=== PATIENT | male | born 1965 | race Two or more races ===

== ENCOUNTER 2024-01-18 06:12 | Inpatient (IN) | payer OTHER ==
[~2024-01-18] VITALS: Ht 170.2 cm; Wt 91.1 kg
[2024-01-18] VITALS (19 sets, daily range): BP systolic 96–111; BP diastolic 55–71; PULSE 61–83; RESP 18–20; TEMP 96.8–98; O2SAT 92–99
[~2024-01-18 06:12] MED LIST: LOSA-534 PO; METF-372 PO; POTA-36 PO; ROSU20TA14 PO; SEMA2INJ3 SC
[2024-01-18] MEDS ORDERED: BUPIVACAINE 0.5% P/F INJ 10 ML VIAL ONE (06:58)
[2024-01-18] MEDS ORDERED: fentaNYL CITRATE 100 MCG/2 ML VL ONE (06:59)
[2024-01-18] MEDS ORDERED: MIDAZOLAM HCL 2MG/2ML 2ml VIAL (1mg/ml) ONE (07:00)
[2024-01-18] MEDS ORDERED: ePHEDrine SULFATE 50 MG/ML AMP ONE (07:00)
[2024-01-18] MEDS ORDERED: KETOROLAC TROMETH 30 MG/ML 1ML VIAL ONE (07:00)
[2024-01-18] MEDS ORDERED: PHENYLEPHRINE HCL 10 MG/ML VL ONE (07:00)
[2024-01-18] MEDS ORDERED: KETAMINE 50mg/ML 1ml syringe ONE (07:00)
[2024-01-18] MEDS ORDERED: GLYCOPYRROLATE 0.2 MG/ML 1ML VIAL ONE (07:00)
[2024-01-18] MEDS ORDERED: DexAMETHasone SOD PHOS 10MG/1ML VIAL INJ ONE (07:00)
[2024-01-18] MEDS ORDERED: PROPOFOL 10 MG/ML 20 ML IV ONE (07:00)
[2024-01-18] MEDS: TRANEXAMIC ACID 20 ML ONE (07:36)
[2024-01-18] MEDS: ceFAZolin 2 GM/D5W100ml 100 ML IV ONE (07:40)
[2024-01-18] MEDS: CEFEPIME 1GM/ 50ML 50 ML IV ONE (07:45)
[2024-01-18] MEDS: MORPHINE SULF PF 5 MG/10 ML VIAL ONE (08:18)
[2024-01-18] MEDS: BUPIVACAINE 0.25% INJ 50ML VIAL ONE (08:18)
[2024-01-18] MEDS: KETOROLAC TROMETH 30 MG/ML 1ML VIAL ONE (08:18)
[2024-01-18] MEDS: VANCOMYCIN HCL 1000 MG VL ONE (08:18)
[2024-01-18] MEDS ORDERED: KETAMINE 50mg/ML 10ml Vial 0 ML ONE (08:25)
--- NOTE | 2024-01-18 09:41 | DVH ---
CLINICAL INDICATION: SURGERY TECHNIQUE: 1 radiographic views of the pelvis were obtained. Comparison: None FINDINGS/IMPRESSION: Postsurgical changes from right hip arthroplasty. .
--- NOTE | 2024-01-18 09:49 | DVHOP2 ---
Operative Report - 2 Report Details Date: 01/18/24 Preop Diagnosis: Right hip degenerative arthritis Postop Diagnosis: Same Surgeon: Shwetha Begum MD Relations Manager: Brigitte TEJADA Anesthesiologist: Peterson Anesthesia: Regional Drains: Salvador closed wound suction Implant: DJO origin stem size 14, 0 neck length head 36 ceramic, 52 acetabular shell with flat polyethylene liner Consent: The patient was informed of the risks and benefits of the procedure. These include but are not limited to complications of anesthesia, postoperative infection, incomplete relief of symptoms, recurrence of symptoms, damage to blood vessels, nerves and tendons, deep venous thrombosis, pulmonary embolism and possible need for repeat surgery in the future. Complications: None Estimated Blood Loss: 400 cc Fluids: See anesthesia record Findings: Denuded cartilage with eburnated bone, osteophytes Indications for Surgery: Right hip degenerative arthritis with severe pain and functional impairment despite adequate nonoperative management Name of Procedure Performed Right total hip arthroplasty Procedure Details Procedure Details: The patient was brought to the operating room and given spinal anesthetic with adequate analgesia obtained. The patient was positioned lateral decubitus with the operative side up, stabilized with hip positioners. Axillary roll applied and lower extremities well-padded. Preop patient received IV Ancef, cefepime and IV tranexamic acid. Surgical timeout was performed verifying patient, laterality and procedure. The hip and lower extremity were prepped and draped in sterile fashion. Incision was made over the greater trochanter. Subcutaneous dissection and hemostasis were performed with Bovie and aqua mantis. I identified the fascia which was incised with Bovie and Charnley retractor inserted. I identified the gluteus medius that was split at the junction of its anterior and middle thirds with Bovie then incised off the anterior greater trochanter. I incised the anterior gluteus minimus which was elevated off the capsule. I elevated the reflected head of the rectus. I then performed anterior capsulectomy with Bovie. I extended capsular incision posterior medially and superior laterally. The head was dislocated. Femoral neck cut was made with saw and head removed. Head diameter was calipered on the back table. I adjusted retractors to expose the acetabulum. I circumferentially removed labral tissue with Bovie. I removed foveal tissue with Bovie, curette and rongeur. I then began reaming sequentially paying attention to inclination and version as I went. I trialed which was stable so acetabular implant was brought into the field and tapped into the acetabulum with good fixation achieved. I then brought up the flat liner which was spun to make sure there was no soft tissue entrapment then tapped in and stability verified. I then brought my attention to the proximal femur. The leg was placed in the sterile bag anteriorly. I cleaned up soft tissue at the greater trochanter shoulder with Bovie. I then used a rongeur to clip the lateral neck. I then used a box osteotome, canal finder and lateralizing rasp. I sequentially broached to size 14. I revised femoral neck cut with calcar planer. I trialed with a [0] neck length and [36] head which was stable. Intraoperative AP pelvis x-ray was obtained to verify length, offset and implant size. The hip was dislocated. Neck and head trial removed. broach was removed. I tapped in the femoral implant with good fixation achieved. I cleaned and dried the Juarez taper and tapped on the ceramic head. The hip was again reduced and tested for stability which was good. I irrigated with xperience. I placed a 2 grams of vancomycin in the deep and superficial wound. I repaired the minimus and medius to the anterior greater trochanter with #[5] FiberWire in running fashion . I oversewed the repair with 0 Vicryl. I repaired the fascia with #1 Ethibond interrupted [id number]. Deep subcutaneous tissue was closed with 0 Vicryl. Superficial subcutaneous tissue was closed with 2-0 Vicryl. The skin was closed with aditya. I then applied the Salvador closed wound suction. Patient tolerated the procedure well and was brought to the recovery room in stable condition. Condition Stable Disposition Still a Patient SHWETHA BEGUM MD Jan 18, 2024 09:49
[2024-01-18] MEDS: ACCU-CHEK COMFORT CURVE STRIP VI ONE (10:00)
[2024-01-18] MEDS ORDERED: KETOROLAC TROMETH 30 MG/ML 1ML VIAL IV PRN (10:00)
[2024-01-18] MEDS ORDERED: diphenhdrAMINE HCL 50 MG/1 ML VL IV PRN (10:00)
[2024-01-18] MEDS ORDERED: ONDANSETRON HCL 4 MG/2 ML VIAL IV ONE (10:00)
[2024-01-18] MEDS ORDERED: DexAMETHasone SOD PHOS 10MG/1ML VIAL INJ IV PRN (10:00)
[2024-01-18] MEDS ORDERED: NALOXONE HCL 0.4 MG/ML VIAL IV PRN (10:00)
[2024-01-18] MEDS ORDERED: ONDANSETRON HCL 4 MG/2 ML VIAL IV PRN ×2 (10:00)
[2024-01-18] MEDS ORDERED: METFORMIN HYDROCHLORIDE 1000 MG PO SCH (10:00)
--- NOTE | 2024-01-18 11:29 | DVH ---
CLINICAL INDICATION: postop TECHNIQUE: 1 radiographic views of the pelvis were obtained. Comparison: XY PELVIS AP on DOS: 01/18/24 FINDINGS/IMPRESSION: Status post right hip arthroplasty.
[2024-01-18] MEDS ORDERED: oxyCODONE HCL 5MG TAB PO PRN ×2 (11:30)
[2024-01-18] MEDS: SODIUM CHLORIDE 0.9% 1,000 ML IV SCH (11:30)
[2024-01-18] MEDS: PREGABALIN 25 MG CAP PO SCH (13:04)
[2024-01-18] MEDS: ACETAMINOPHEN 325 MG TAB PO SCH (13:04)
[2024-01-18] MEDS: ceFAZolin 2 GM/D5W50ml 50 ML IV SCH (15:37)
[2024-01-18] MEDS: metFORMIN HYDROCHLORIDE 500 MG TAB PO SCH (19:27)
[2024-01-19] VITALS (18 sets, daily range): BP systolic 96–114; BP diastolic 54–71; PULSE 56–78; RESP 16–20; TEMP 96.7–98.3; O2SAT 94–100
[2024-01-19 06:24] LABS: Basophils # (auto) 0 10 ^3/uL (0-0.2); Basophils % (auto) 0.1 % (0.0-2.0); Eosinophils # (auto) 0 10 ^3/uL (0-0.8); Hematocrit 30.6 % (41.0-53.0); Hemoglobin 10.8 g/dL (13.5-17.5); Lymphocytes % (auto) 9.4 % (10.0-50.0); Mean Corpuscular Hemoglobin 29.4 pg (28.0-32.0); Mean Corpuscular Hgb Conc. 35.1 g/dL (32.0-36.0); Mean Corpuscular Volume 83.7 fL (80.0-100.0); Monocytes # (auto) 0.8 10 ^3/uL (0-1.3); Monocytes % (auto) 6.9 % (0.0-12.0); Neutrophils # (auto) 9.3 10 ^3/uL (1.6-8.6); Neutrophils % (auto) 83.6 % (37.0-80.0); Platelet Count (auto) 201 10^3/uL (140-450); Red Blood Cells 3.66 10^6/uL (4.5-5.90); Red Cell Distribution Width 15.2 % (11.8-14.3); White Blood Cell 11.1 10^3/uL (4.4-10.8)
[2024-01-19 06:31] LABS: Calcium 8.9 mg/dL (8.7-10.4); Chloride 107 mmol/L (98-107); Potassium 4.4 mmol/L (3.5-5.1); Sodium 138 mmol/L (136-145)
[2024-01-19 06:32] LABS: Anion Gap 6 (5-15); Carbon Dioxide 25 mmol/L (20-31)
[2024-01-19 06:37] LABS: BUN/Creatinine Ratio 22.1 (10.0-20.0); Blood Urea Nitrogen 17 mg/dL (9-23); Glucose 175 mg/dL (74-106)
[2024-01-19] MEDS: LOSARTAN POTASSIUM 50 MG TAB PO SCH (07:00)
[2024-01-19] MEDS: APIXABAN 2.5 MG TAB PO SCH (08:51)
--- NOTE | 2024-01-19 17:20 | DVHDS2 ---
Discharge Summary Date of Admission Jan 18, 2024 at 09:58 Date of Discharge: Jan 19, 2024 Labs/Diagnostic Data: Laboratory Results Test 01/19/24 05:17 01/19/24 04:00 01/18/24 09:53 Sodium Level 138 mmol/L (136-145) Potassium Level 4.4 mmol/L (3.5-5.1) Chloride Level 107 mmol/L (98-107) Carbon Dioxide Level 25 mmol/L (20-31) Anion Gap 6 (5-15) Blood Urea Nitrogen 17 mg/dL (9-23) Creatinine 0.77 mg/dL (0.700-1.30) Glomerular Filtration Rate Calc 105 mL/min (>90) BUN/Creatinine Ratio 22.1 (10.0-20.0) Serum Glucose 175 mg/dL (74-106) Calcium Level 8.9 mg/dL (8.7-10.4) White Blood Count 11.1 10^3/uL (4.4-10.8) Red Blood Count 3.66 10^6/uL (4.5-5.90) Hemoglobin 10.8 g/dL (13.5-17.5) Hematocrit 30.6 % (41.0-53.0) Mean Corpuscular Volume 83.7 fL (80.0-100.0) Mean Corpuscular Hemoglobin 29.4 pg (28.0-32.0) Mean Corpuscular Hemoglobin Concent 35.1 g/dL (32.0-36.0) Red Cell Distribution Width 15.2 % (11.8-14.3) Platelet Count 201 10^3/uL (140-450) Mean Platelet Volume 7.8 fL (6.9-10.8) Neutrophils (%) (Auto) 83.6 % (37.0-80.0) Lymphocytes (%) (Auto) 9.4 % (10.0-50.0) Monocytes (%) (Auto) 6.9 % (0.0-12.0) Eosinophils (%) (Auto) 0.0 % (0.0-7.0) Basophils (%) (Auto) 0.1 % (0.0-2.0) Neutrophils # (Auto) 9.3 10 ^3/uL (1.6-8.6) Lymphocytes # (Auto) 1.0 10 ^3/uL (0.4-5.4) Monocytes # (Auto) 0.8 10 ^3/uL (0-1.3) Eosinophils # (Auto) 0 10 ^3/uL (0-0.8) Basophils # (Auto) 0 10 ^3/uL (0-0.2) Nucleated Red Blood Cells 0.0 % POC Glucose 142 mg/dl (70-106) Other Laboratory Tests 01/19/24 05:17 01/19/24 04:00 Brief Hx & Hospital Course: Patient was brought to the hospital yesterday to undergo a right total hip arthroplasty. He tolerated the procedure well without complications and was kept overnight for postoperative observation. He has remained medically stable throughout his stay denied any overnight events and reports pain is being well controlled with the help pain medication. He reports that he was able to get up and walk with the help of physical therapy and his walker and was able to get around the nurses station and back to his bed with only mild pain to his hip. He is otherwise feeling well denying any other complaints or concerns during my evaluation and would like to go home. Condition at Discharge: Stable Final Diagnosis/Problems List Same Discharge Disposition: Home Discharge Instruct/Medications Diet: Regular Activity: See Comment Activity comment: Patient to remain weight-bearing as tolerated with the assistance of a walker Follow Up/Referral: Patient to follow up with our office in 10-14 days for his 1st postoperative evaluation. Medications: Rx sent via our outpatient EMR system Discharge Statement: "Patient was advised to return to the ER or call 911 if any headaches, dizziness, shortness of breath, chest pain, abdominal pain, bleeding, fevers, or worsening of medical condition. Patient was counseled about treatment plan, medications, possible side effects, patientverbalized understanding. All questions were answered to the best of my ability. This discharge took greater then 30 minutes in planning, reviewing documentation, counseling the patient, and discussing with other team members." ASSESSMENT ASSESSMENT Assessment Same ANGELIA MCCLOUD Jan 19, 2024 17:20
--- NOTE | 2024-01-19 17:22 | DVHPN2 ---
Progress Note - Dictate Date Seen: Jan 19, 2024 Medical Necessity Reason Pt with a Central, PICC or Fol: No Subjective Patient was lying comfortably in bed during my evaluation reports some postoperative hip pain that is being well managed with the help of pain medication. Patient reports that he was able to get up and walk with the help of physical therapy and his walker and was able to get to the nurse's station and back to his bed with only mild pain to his hip. Patient is otherwise feeling well denying any other complaints or concerns during my evaluation and would like to go home. vital signs Vital Sign Date Time Temp Pulse Resp B/P (MAP) Pulse Ox O2 Delivery O2 Flow Rate FiO2 01/19/24 16:51 98.3 75 18 111/64 (80) 100 98.3 01/19/24 08:00 Room Air* 0 21 Total Intake and Output 01/18/24 01/18/24 01/19/24 15:00 23:00 07:00 Intake Total 170 ml 550 ml 300 ml Output Total 400 ml 750 ml Balance 170 ml 150 ml -450 ml medications Current Medications Medications Dose Ordered Sig/Mike Route Start Time Stop Time Status Last Admin Dose Admin Diphenhydramine HCl 25 mg Q4HP PRN IV 01/18/24 10:00 Ondansetron HCl 4 mg Q4HP PRN IV 01/18/24 10:00 Ketorolac Tromethamine 30 mg Q6HP PRN IV 01/18/24 10:00 01/23/24 09:59 Pregabalin 50 mg BID PO 01/18/24 10:00 01/19/24 08:51 50 MG Apixaban 2.5 mg BID PO 01/19/24 10:00 02/23/24 09:59 01/19/24 08:51 2.5 MG Sodium Chloride 1,000 ml @ 125 mls/hr Q8H IV 01/18/24 11:30 01/19/24 15:58 125 MLS/HR Acetaminophen 650 mg Q6HP PO 01/18/24 12:00 01/19/24 11:24 650 MG Ondansetron HCl 4 mg Q4HP PRN IV 01/18/24 10:00 Oxycodone HCl 5 mg Q4HP PRN PO 01/18/24 11:30 Oxycodone HCl 10 mg Q4HP PRN PO 01/18/24 11:30 Losartan Potassium 50 mg QAM PO 01/19/24 07:00 Patient Own Medication 1,000 mg BID PO 01/18/24 10:00 UNV Metformin HCl 1,000 mg BIDWM PO 01/18/24 18:00 01/19/24 08:51 1,000 MG objective A&O x4 in no acute distress Hip range of motion grossly intact with pain on movement Salvador dressing clean, dry, intact, and maintaining suction No distal edema or calf tenderness to palpation Neurovascularly intact with cap refill less than 2 seconds laboratory and microbiology Laboratory Tests 01/19/24 05:17 01/19/24 04:00 Test 01/19/24 05:17 Range/Units Serum Glucose 175 H 74-106 mg/dL Assessment/Plan Patient to be discharged home and advised to remain weight-bearing as tolerated with the assistance of a walker. I also instructed the patient to follow up with our office in 10-14 days for his 1st postoperative evaluation and to maintain his dressings clean, dry, intact, and maintaining suction and to call our office if he has any questions or concerns. Rx sent via our outpatient EMR system. He understood and agreed. Plan discussed with: Patient ANGELIA MCCLOUD Jan 19, 2024 17:22
[2024-01-20 01:00] VITALS: BP 111/73; PULSE 76; RESP 19; TEMP 98.8; O2SAT 97
[2024-01-20 05:00] VITALS: BP 113/59; PULSE 69; RESP 17; TEMP 98.4; O2SAT 96
[2024-01-20 08:00] VITALS: PULSE 70; RESP 16
[2024-01-20 08:33] VITALS: BP 124/75; PULSE 72; RESP 19; TEMP 98.1; O2SAT 99
[2024-01-20 12:43] VITALS: BP 114/72; PULSE 75; RESP 19; TEMP 98.5; O2SAT 100
--- NOTE | 2024-01-20 15:12 | DVHPN2 ---
Progress Note - Dictate Date Seen: Jan 20, 2024 Medical Necessity Reason Pt with a Central, PICC or Fol: No Subjective Patient was lying comfortably in bed during my evaluation and reports some continued postoperative hip pain that is being well managed with the help of pain medication. Patient reports that he was able to get up and walk with the help of physical therapy and his walker and was able to get to the nurse's station and back to his bed with only mild pain to his hip. Patient is otherwise feeling well denying any other complaints or concerns during my evaluation and would like to go home and is waiting for a walker. vital signs Vital Sign Date Time Temp Pulse Resp B/P (MAP) Pulse Ox O2 Delivery O2 Flow Rate FiO2 01/20/24 12:43 98.5 75 19 114/72 (86) 100 98.5 01/20/24 08:00 Room Air* 0 21 Total Intake and Output 01/19/24 01/19/24 01/20/24 15:00 23:00 07:00 Intake Total 2040 ml 910 ml Output Total 4710 ml Balance 2040 ml -3800 ml medications Current Medications Medications Dose Ordered Sig/Mike Route Start Time Stop Time Status Last Admin Dose Admin Diphenhydramine HCl 25 mg Q4HP PRN IV 01/18/24 10:00 Ondansetron HCl 4 mg Q4HP PRN IV 01/18/24 10:00 Ketorolac Tromethamine 30 mg Q6HP PRN IV 01/18/24 10:00 01/23/24 09:59 Pregabalin 50 mg BID PO 01/18/24 10:00 01/20/24 08:46 50 MG Apixaban 2.5 mg BID PO 01/19/24 10:00 02/23/24 09:59 01/20/24 08:46 2.5 MG Sodium Chloride 1,000 ml @ 125 mls/hr Q8H IV 01/18/24 11:30 01/20/24 08:50 125 MLS/HR Acetaminophen 650 mg Q6HP PO 01/18/24 12:00 01/20/24 06:02 650 MG Ondansetron HCl 4 mg Q4HP PRN IV 01/18/24 10:00 Oxycodone HCl 5 mg Q4HP PRN PO 01/18/24 11:30 Oxycodone HCl 10 mg Q4HP PRN PO 01/18/24 11:30 Losartan Potassium 50 mg QAM PO 01/19/24 07:00 01/20/24 06:03 50 MG Patient Own Medication 1,000 mg BID PO 01/18/24 10:00 UNV Metformin HCl 1,000 mg BIDWM PO 01/18/24 18:00 01/20/24 08:47 1,000 MG objective A&O x4 in no acute distress Hip range of motion grossly intact with pain on movement Salvador dressing clean, dry, intact, and maintaining suction No distal edema or calf tenderness to palpation Neurovascularly intact with cap refill less than 2 seconds laboratory and microbiology Laboratory Tests 01/19/24 05:17 01/19/24 04:00 Test 01/19/24 05:17 Range/Units Serum Glucose 175 H 74-106 mg/dL Assessment/Plan Patient to be discharged home and advised to remain weight-bearing as tolerated with the assistance of a walker. I also instructed the patient to follow up with our office in 10-14 days for his 1st postoperative evaluation and to maintain his dressings clean, dry, intact, and maintaining suction and to call our office if he has any questions or concerns. Rx sent via our outpatient EMR system. He understood and agreed. Plan discussed with: Patient ANGELIA MCCLOUD Jan 20, 2024 15:12
== END 2024-01-20 15:50 | disposition home or self-care (01) | DRG 470 ==
LOC: SUR 06:12 → TELE 09:58 → TELE-EAST 10:59
PROVIDERS: ADMIT Orthopaedic Surgery; ATTEND Orthopaedic Surgery
PROC: 0SR904Z Replacement of Right Hip Joint with Ceramic on Polyethylene Synthetic Substitute, Open Approach (ICD-10-PCS; principal; 2024-01-18 07:24)
DX: M16.11 Unilateral primary osteoarthritis, right hip (principal); E11.9 Type 2 diabetes mellitus without complications; Z87.891 Personal history of nicotine dependence
CPT/HCPCS: 36415; 72170; 80048; 82962; 85025; 86850; 86900; 86901; 97110; 97116; 97163; 97530; G0378; J1100; J1885; J2250; J2704; J3490